=== PATIENT | male | born 1955 | race Caucasian/White ===

== ENCOUNTER 2016-11-19 12:23 | Inpatient (IN) | payer BC ==
[2016-11-19] MEDS ORDERED: Ketorolac 30 MG/ML SDV IVPUSH ONE (12:33)
[2016-11-19] MEDS ORDERED: Famotidine 20 MG/2 ML SDV IVPUSH ONE (12:33)
[2016-11-19] MEDS ORDERED: Alum Hydrox/Mag Hydrox/Simeth 15 ML, Metoclopramide 5 MG, Lidocaine 2% 5 ML PO ONE ×3 (12:33)
[2016-11-19] MEDS ORDERED: Aspirin 81 MG Tab.Chew PO ONE ×2 (12:33)
[2016-11-19] MEDS ORDERED: Sodium Chloride 0.9% 2.5 ML Syringe FLUSH PRN (12:33)
[2016-11-19] MEDS ORDERED: Sodium Chloride 0.9% 10 ML Syringe FLUSH PRN (12:33)
[2016-11-19 13:11] LABS: CHLORIDE,CL 96 mmol/L (98-110); SODIUM,NA 130 mmol/L (136-146)
[2016-11-19] MEDS ORDERED: cefTRIAXone 1 GM in Premix Bag 1 BAG IV ONE (13:29)
--- NOTE | 2016-11-19 13:38 | EDM.PDOC ---
ED HPI GENERAL MEDICAL PROBLEM - General Chief Complaint: Chest Pain Stated Complaint: CHEST PAIN Time Seen by Provider: 11/19/16 12:34 Source of Information: Reports: Patient History Limitations: Reports: No Limitations - History of Present Illness INITIAL COMMENTS - FREE TEXT/NARRATIVE: History of present illness: [61-year-old male coming in complaining of right-sided chest pain increases with a cough. Patient indicates that he has had been coughing and becoming more short of breath over the last 3 days and is now concerned about the need to be evaluated] Review of systems: As per history of present illness and below otherwise all systems reviewed and negative. Past medical history: As per history of present illness and as reviewed below otherwise noncontributory. Surgical history: As per history of present illness and as reviewed below otherwise noncontributory. Social history: No reported history of drug or alcohol abuse. Family history: As per history of present illness and as reviewed below otherwise noncontributory. Physical exam: HEENT: Atraumatic, normocephalic, pupils reactive, negative for conjunctival pallor or scleral icterus, mucous membranes moist, throat clear, neck supple, nontender, trachea midline. Lungs: Lungs clear but diminished throughout save some intermittent coarseness in the right apex that improves with a cough, chest nontender. Heart: S1S2, regular, negative for clicks, rubs, or JVD. Abdomen: Soft, nondistended, nontender. Negative for masses or hepatosplenomegaly. Negative for costovertebral tenderness. Pelvis: Stable nontender. Genitourinary: Deferred. Rectal: Deferred. Extremities: Atraumatic, negative for cords or calf pain. Neurovascular unremarkable. Neuro: Awake, alert, oriented. Cranial nerves II through XII unremarkable. Cerebellum unremarkable. Motor and sensory unremarkable throughout. Exam nonfocal. Patient has been a smoker history of bleed but has been attempting to quit indicates the breathing has made it more difficult to smoke as well so he is down to half a pack in the last 10 days approximately. Patient indicates that he becomes dyspneic on exertion and is finding it difficult to walk up stairs. Diagnostics: [CBC, CMP, troponin, chest x-ray, BNP, lactate, blood cultures] Therapeutics: [] Impression: [Pneumonia] Plan: [Admit] Definitive disposition and diagnosis as appropriate pending reevaluation and review of above. chest Pain Score (Numeric/FACES): 2 - Related Data Allergies Allergy/AdvReac Type Severity Reaction Status Date / Time No Known Allergies Allergy Verified 11/19/16 12:29 Home Meds: Home Meds . [No Known Home Meds] 11/19/16 [History] Past Medical History - Past Surgical History GI Surgical History: Reports: Hernia Repair/Other Musculoskeletal Surgical History: Reports: Other (See Below) Other Musculoskeletal Surgeries/Procedures:: knee surgery Social & Family History - Family History Family Medical History: Noncontributory - Tobacco Use Smoking Status *Q: Current Every Day Smoker Years of Tobacco use: 20 Packs/Tins Daily: 0.5 - Caffeine Use Caffeine Use: Reports: None - Alcohol Use Days Per Week of Alcohol Use: 2 Number of Drinks Per Day: 2 Total Drinks Per Week: 4 - Recreational Drug Use Recreational Drug Use: No ED ROS GENERAL - Review of Systems Review Of Systems: See Below (See history of present illness) ED EXAM, GENERAL - Physical Exam Exam: See Below (See history of present illness) Course - Vital Signs Last Recorded V/S: Last Vital Signs Temp 36.1 C 11/19/16 12:29 Pulse 124 H 11/19/16 12:29 Resp 20 11/19/16 12:29 BP 144/101 H 11/19/16 12:29 Pulse Ox 98 11/19/16 13:04 - Orders/Labs/Meds Orders: Active Orders 24 hr Category Date Time Status Cardiac Monitoring [RC] . DIRECTED Care 11/19/16 12:33 Ordered EKG Documentation Completion [RC] STAT Care 11/19/16 12:33 Active EKG Documentation Completion [RC] STAT Care 11/19/16 12:33 Ordered Oxygen Therapy, ED [RC] ASDIRECTED Care 11/19/16 12:33 Active Chest 1V Frontal [CR] Stat Exams 11/19/16 12:33 Ordered CULTURE BLOOD [BC] Stat Lab 11/19/16 13:29 Ordered CULTURE BLOOD [BC] Stat Lab 11/19/16 13:29 Ordered LACTIC ACID,WHOLE BLOOD [BG] Stat Lab 11/19/16 13:29 Ordered UA W/MICROSCOPIC [URIN] Stat Lab 11/19/16 12:33 Uncollected Sodium Chloride 0.9% [Saline Flush] Med 11/19/16 12:33 Ordered 10 ml FLUSH ASDIRECTED PRN Sodium Chloride 0.9% [Saline Flush] Med 11/19/16 12:33 Ordered 2.5 ml FLUSH ASDIRECTED PRN cefTRIAXone [Rocephin in Dextrose,Iso-Osm 1 GM/50 ML] 1 Med 11/19/16 13:29 Ordered gm Premix Bag 1 bag IV ONETIME Blood Culture x2 Reflex Set [OM.PC] Stat Oth 11/19/16 13:29 Ordered Saline Lock Insert [OM.PC] Stat Ot 11/19/16 12:33 Ordered Medication Orders Ceftriaxone Sodium/Dextrose 1 (gm/ Premix) 50 mls @ 100 mls/hr IV ONETIME ONE Stop: 11/19/16 13:58 Sodium Chloride (Saline Flush) 10 ml FLUSH ASDIRECTED PRN PRN Reason: Keep Vein Open Last Admin: 11/19/16 12:48 Dose: 10 ml Sodium Chloride (Saline Flush) 2.5 ml FLUSH ASDIRECTED PRN PRN Reason: Keep Vein Open Last Admin: 11/19/16 12:48 Dose: 2.5 ml Labs: Laboratory Tests 11/19/16 11/19/16 11/19/16 Range/Units 12:35 12:35 12:35 WBC 12.39 H (4.0-11.0) K/uL RBC 3.89 L (4.50-5.90) M/uL Hgb 12.1 L (13.0-17.0) g/dL Hct 35.8 L (38.0-50.0) % MCV 92.0 (80.0-98.0) fL MCH 31.1 (27.0-32.0) pg MCHC 33.8 (31.0-37.0) g/dL RDW Std Deviation 42.3 (28.0-62.0) fl RDW Coeff of Parvez 13 (11.0-15.0) % Plt Count 308 (150-400) K/uL MPV 10.40 (7.40-12.00) fL Neut % (Auto) 78.0 (48.0-80.0) % Lymph % (Auto) 12.2 L (16.0-40.0) % Cobb % (Auto) 9.5 (0.0-15.0) % Eos % (Auto) 0.0 (0.0-7.0) % Baso % (Auto) 0.3 (0.0-1.5) % Neut # (Auto) 9.7 H (1.4-5.7) K/uL Lymph # (Auto) 1.5 (0.6-2.4) K/uL Cobb # (Auto) 1.2 H (0.0-0.8) K/uL Eos # (Auto) 0.0 (0.0-0.7) K/uL Baso # (Auto) 0.0 (0.0-0.1) K/uL Nucleated RBC % 0.0 /100WBC Nucleated RBCs # 0 K/uL Sodium 130 L (136-146) mmol/L Potassium 4.6 (3.5-5.1) mmol/L Chloride 96 L (98-110) mmol/L Carbon Dioxide 20 L (21-31) mmol/L BUN 19 (6.0-23.0) mg/dL Creatinine 0.9 (0.6-1.5) mg/dL Est Cr Clr Drug Dosing 88.38 mL/min Estimated GFR (MDRD) > 60.0 ml/min Glucose 145 H (60-110) mg/dL Calcium 8.4 L (8.8-10.8) mg/dL Total Bilirubin 0.9 (0.1-1.5) mg/dL AST 45 H (5-40) IU/L ALT 43 (8-54) IU/L Alkaline Phosphatase 174 H (40-150) Troponin I < 0.10 (0.0-0.29) NG/ML Total Protein 8.2 H (6.0-8.0) g/dL Albumin 3.6 (3.5-5.0) g/dL Globulin 4.6 H (2.0-3.5) g/dL Albumin/Globulin Ratio 0.8 L (1.3-2.8) Amylase 39 (10-90) U/L Lipase 16 (7-80) U/L Meds: Medications Generic Name Dose Route Start Last Admin Trade Name Freq PRN Reason Stop Dose Admin Ceftriaxone Sodium/Dextrose 1 50 mls @ 100 mls/hr 11/19/16 13:29 gm/ Premix IV 11/19/16 13:58 ONETIME ONE Sodium Chloride 10 ml 11/19/16 12:33 11/19/16 12:48 Saline Flush FLUSH 10 ml ASDIRECTED PRN Administration Keep Vein Open Sodium Chloride 2.5 ml 11/19/16 12:33 11/19/16 12:48 Saline Flush FLUSH 2.5 ml ASDIRECTED PRN Administration Keep Vein Open Discontinued Medications Generic Name Dose Route Start Last Admin Trade Name Freq PRN Reason Stop Dose Admin Aspirin 324 mg 11/19/16 12:33 11/19/16 12:47 Aspirin PO 11/19/16 12:34 324 mg ONETIME ONE Administration Aspirin 324 mg 11/19/16 12:33 11/19/16 12:49 Aspirin PO 11/19/16 12:34 Not Given ONETIME ONE Al Hydroxide/Mg Hydroxide 15 0 ml 11/19/16 12:33 11/19/16 12:47 ml/ Metoclopramide HCl 5 mg/ PO 11/19/16 12:34 25 each Lidocaine HCl 5 ml ONETIME ONE Administration Famotidine 20 mg 11/19/16 12:33 11/19/16 12:48 Pepcid IVPUSH 11/19/16 12:34 20 mg ONETIME ONE Administration Ketorolac Tromethamine 30 mg 11/19/16 12:33 11/19/16 12:48 Toradol IVPUSH 11/19/16 12:34 30 mg ONETIME ONE Administration Departure - Departure Time of Disposition: 13:37 Disposition: Admitted As Inpatient 68 Condition: good Clinical Impression: Pneumonia - Discharge Information Forms: ED Department Discharge - My Orders Last 24 Hours: My Active Orders 11/19/16 12:33 Cardiac Monitoring [RC] . DIRECTED EKG Documentation Completion [RC] STAT UA W/MICROSCOPIC [URIN] Stat Sodium Chloride 0.9% [Saline Flush] 10 ml FLUSH ASDIRECTED PRN Sodium Chloride 0.9% [Saline Flush] 2.5 ml FLUSH ASDIRECTED PRN Saline Lock Insert [OM.PC] Stat 11/19/16 13:29 CULTURE BLOOD [BC] Stat CULTURE BLOOD [BC] Stat LACTIC ACID,WHOLE BLOOD [BG] Stat cefTRIAXone [Rocephin in Dextrose,Iso-Osm 1 GM/50 ML] 1 gm Premix Bag 1 bag IV ONETIME Blood Culture x2 Reflex Set [OM.PC] Stat - Assessment/Plan Last 24 Hours: My Active Orders 11/19/16 12:33 Cardiac Monitoring [RC] . DIRECTED EKG Documentation Completion [RC] STAT UA W/MICROSCOPIC [URIN] Stat Sodium Chloride 0.9% [Saline Flush] 10 ml FLUSH ASDIRECTED PRN Sodium Chloride 0.9% [Saline Flush] 2.5 ml FLUSH ASDIRECTED PRN Saline Lock Insert [OM.PC] Stat 11/19/16 13:29 CULTURE BLOOD [BC] Stat CULTURE BLOOD [BC] Stat LACTIC ACID,WHOLE BLOOD [BG] Stat cefTRIAXone [Rocephin in Dextrose,Iso-Osm 1 GM/50 ML] 1 gm Premix Bag 1 bag IV ONETIME Blood Culture x2 Reflex Set [OM.PC] Stat
[2016-11-19] MEDS ORDERED: oxyCODONE 5 MG Tab PO PRN (15:44)
[2016-11-19] MEDS ORDERED: Morphine 2 MG/ML Syringe IVPUSH PRN (15:45)
--- NOTE | 2016-11-19 16:59 | PCM.HP ---
H&P History of Present Illness - General Date of Service: 11/19/16 Admit Problem/Dx: pneumonia, lactic acidosis, leukocytosis Source of Information: Patient History Limitations: Reports: No Limitations - History of Present Illness Initial Comments - Free Text/Narative: Patient is a 61-year-old gentleman who is presented to the emergency department via POV secondary to cough, congestion and chest pain for the past week. The patient reports that he has had some chills but no fever. Patient says that he had symptoms of started out as a cough and congestion in his upper respiratory tract and this is gotten worse to the point that now he is coughing up moderate amounts of phlegm. Patient says that a coworker in the next cubicle had been sick as well with similar symptoms. The patient says that he has pain has been across his chest and has been aggravated by coughing. The patient has been trying to take [id number] medication but this does not work for him. The patient has denied any dizziness or lightheadedness. Patient does not normally seek medical care and has been in his usual state of health up at the present time. Patient reports that for the past couple of months he has cut back considerably on the amount of tobacco consumed. He is down to 2-3 cigarettes per day. The patient does not take any other medications chronically. An x-ray obtained through the emergency department shows a hilar infiltrate along with cardiomegaly. On initial presentation the patient also had been tachycardic. He has said that he has been very short of breath to the point of feeling like he has been running a distance. The patient's oxygen saturation was noted to be at 98%. Onset of Symptoms: Reports: Gradual Duration of Symptoms: Reports: Day(s):, Getting Worse Location: Reports: Chest Quality: Reports: Ache, Dull Improves with: Reports: Medication Worsens with: Reports: Breathing Context: Reports: Sick Contact Associated Symptoms: Reports: Chest Pain, cough w sputum, Fever/Chills, Malaise , Shortness of Breath chest Pain Score (Numeric/FACES): 2 - Related Data Allergies/Adverse Reactions: Allergies Allergy/AdvReac Type Severity Reaction Status Date / Time No Known Allergies Allergy Verified 11/19/16 12:29 Home Medications: Home Meds . [No Known Home Meds] 11/19/16 [History] Past Medical History HEENT History: Reports: Impaired Vision Cardiovascular History: Reports: None Respiratory History: Reports: None Gastrointestinal History: Reports: None Genitourinary History: Reports: None Musculoskeletal History: Reports: None Neurological History: Reports: None Psychiatric History: Reports: None Endocrine/Metabolic History: Reports: None Hematologic History: Reports: Anemia (childhood anemia) Immunologic History: Reports: None Oncologic (Cancer) History: Reports: None Dermatologic History: Reports: None - Infectious Disease History Infectious Disease History: Reports: None - Past Surgical History GI Surgical History: Reports: Hernia Repair/Other Musculoskeletal Surgical History: Reports: Other (See Below) Other Musculoskeletal Surgeries/Procedures:: knee surgery Social & Family History - Family History Family Medical History: Noncontributory - Tobacco Use Smoking Status *Q: Current Every Day Smoker Years of Tobacco use: 20 Packs/Tins Daily: 0.2 Second Hand Smoke Exposure: No - Caffeine Use Caffeine Use: Reports: None - Alcohol Use Days Per Week of Alcohol Use: 2 Number of Drinks Per Day: 2 Total Drinks Per Week: 4 - Recreational Drug Use Recreational Drug Use: No - Living Situation & Occupation Living situation: Reports: Occupation: Employed H&P Review of Systems - Review of Systems: Review Of Systems: See Below General: Reports: Chills, Weakness HEENT: Reports: No Symptoms Pulmonary: Reports: Shortness of Breath, Pleuritic Chest Pain, Cough, Sputum Cardiovascular: Reports: No Symptoms Gastrointestinal: Reports: No Symptoms Genitourinary: Reports: No Symptoms Musculoskeletal: Reports: No Symptoms Skin: Reports: No Symptoms Psychiatric: Reports: No Symptoms Neurological: Reports: No Symptoms Hematologic/Lymphatic: Reports: No Symptoms Immunologic: Reports: No Symptoms Exam - Exam Exam: See Below - Vital Signs Vital Signs: Last Vital Signs Temp 36.4 C 11/19/16 16:00 Pulse 100 11/19/16 16:00 Resp 16 11/19/16 16:00 BP 100/72 11/19/16 16:00 Pulse Ox 94 L 11/19/16 16:00 Weight: 67.1 kg - Exam Quality Assessment: No: Supplemental Oxygen General: Alert, Oriented, Cooperative. No: Mild Distress HEENT: Conjunctiva Clear, EACs Clear, Mucosa Moist & [place], Nares Patent Neck: Supple, Trachea Midline. No: Lymphadenopathy Lungs: Normal Respiratory Effort, Rales (bibasilar) Cardiovascular: Regular Rate, Regular Rhythm Abdomen: Normal Bowel Sounds, Soft. No: Peritoneal Signs, Distention, Tenderness Back Exam: Normal Inspection Extremities: Normal Inspection Skin: Warm, Dry, Intact Neurological: Cranial Nerves Intact Neuro Extensive - Mental Status: Alert, Oriented x3 Psychiatric: Alert, Normal Affect, Normal Mood - Patient Data Lab Results last 24 hrs: Laboratory Results - last 24 hr 11/19/16 Range/Units 13:50 Lactate 2.4 H (0.20-2.00) mmol/L Result Diagrams: 11/19/16 12:35 11/19/16 12:35 EKG INTERPRETATION EKG Date: 11/19/16 Rhythm: NSR [place]: normal P-wave: present QRS: normal ST-T: normal QT: normal EKG Interpretation Comments: normal EKG *Q Meaningful Use (ADM) - VTE *Q VTE Criteria *Q: - VTE Risk Assess *Q Each Risk Factor Represents 1 Point: Age 41 - 59 years Total Score 1 Point Risk Factors: 1 - Stroke *Q Stroke Criteria *Q: - AMI *Q AMI Criteria *Q: - Problem List (1) Pneumonia SNOMED Code(s): 533423060 ICD Code: J18.9 - PNEUMONIA, UNSPECIFIED ORGANISM Status: Acute Priority : High Current Visit: Yes Qualifiers: Pneumonia type: due to unspecified organism Laterality: left Lung location: lower lobe of lung Qualified Code(s): J18.1 - Lobar pneumonia, unspecified organism (2) Lactic acid acidosis SNOMED Code(s): 74721641 ICD Code: E87.2 - ACIDOSIS Status: Acute Priority: High Current Visit: Yes (3) Leukocytosis SNOMED Code(s): 575442543, 539483892 ICD Code: D72.829 - ELEVATED WHITE BLOOD CELL COUNT, UNSPECIFIED Status: Acute Priority: High Current Visit: Yes Qualifiers: Leukocytosis type: unspecified Qualified Code(s): D72.829 - Elevated white blood cell count, unspecified (4) Smoker SNOMED Code(s): 72161492 ICD Code: F17.200 - NICOTINE DEPENDENCE, UNSPECIFIED, UNCOMPLICATED Status : Chronic Priority: High Current Visit: Yes (5) Acute chest wall pain SNOMED Code(s): 099237038 ICD Code: R07.89 - OTHER CHEST PAIN Status: Acute Priority: High Current Visit: Yes Problem List Initiated/Reviewed/Updated: Yes Orders Last 24hrs: Active Orders 24 hr Category Date Time Status Regular Diet [DIET] Diet 11/19/16 Dinner Active Echo 2D wo Cont [US] Routine Exams 11/19/16 16:30 Ordered BASIC METABOLIC PANEL,BMP [CHEM] Routine Lab 11/20/16 05:00 Ordered CBC WITH AUTO DIFF [HEME] Routine Lab 11/20/16 05:00 Ordered CULTURE SPUTUM + SMEAR [RM] Routine Lab 11/19/16 16:30 Uncollected LACTIC ACID,WHOLE BLOOD [BG] Routine Lab 11/19/16 18:30 Ordered Morphine Med 11/19/16 15:45 Active 2 mg IVPUSH Q4H PRN Nicotine [Habitrol] Med 11/20/16 09:00 Active 7 mg TRDERM DAILY Sodium Chloride 0.9% [Normal Saline] 1,000 ml Med 11/19/16 15:45 Active IV ASDIRECTED oxyCODONE Med 11/19/16 15:44 Active 5 mg PO Q4H PRN Medication Orders Sodium Chloride (Normal Saline) 1,000 mls @ 125 mls/hr IV ASDIRECTED ARNAUD Morphine Sulfate (Morphine) 2 mg IVPUSH Q4H PRN PRN Reason: Pain (severe 7-10) Nicotine (Habitrol) 7 mg TRDERM DAILY ARNAUD Oxycodone HCl (Oxycodone) 5 mg PO Q4H PRN PRN Reason: Pain (moderate 4-6) Sodium Chloride (Saline Flush) 10 ml FLUSH ASDIRECTED PRN PRN Reason: Keep Vein Open Last Admin: 11/19/16 12:48 Dose: 10 ml Sodium Chloride (Saline Flush) 2.5 ml FLUSH ASDIRECTED PRN PRN Reason: Keep Vein Open Last Admin: 11/19/16 12:48 Dose: 2.5 ml Assessment/Plan Comment:: November 19, 2016: The patient has been admitted to inpatient secondary to his leukocytosis, lactic acidosis and pneumonia. He's been admitted for IV antibiotics, fluid support and oxygen as necessary. The patient had been given 1 g of Rocephin in the emergency department prior to admission and I have elected to place the patient on Levaquin 500 mg IV daily and have ordered sputum cultures to speciate bacteria and his antibiotics will be adjusted accordingly. The patient also has been provided narcotic pain medication to help reduce chest pain. He also has a 7 mg nicotine patch to help with his smoking. I have encouraged the patient to stop smoking and take advantage of the hospitalization. I am concerned that the patient does have cardiomegaly on chest x-ray and have ordered also a 2-D echocardiogram to better characterize this. Repeat lactic acid will also be completed. The patient would likely be ready to go home in one to 2 days depending upon resolution of his leukocytosis , pain well-controlled and antibiotics appropriate for his pneumonia. The patient will also be anticoagulated by Lovenox 40 mg daily. I'll see the patient in the morning and his treatment plan will be adjusted accordingly.
[2016-11-19] MEDS ORDERED: Enoxaparin 40 MG/0.4 ML Syringe SUBCUT SCH (17:00)
[2016-11-20] MEDS ORDERED: Benzonatate 100 MG Cap PO PRN (00:56)
[2016-11-20] MEDS: Sodium Chloride 0.9% 1,000 ML IV SCH ×2 (01:09→09:00)
[2016-11-20 05:27] LABS: CHLORIDE,CL 99 mmol/L (98-110); SODIUM,NA 129 mmol/L (136-146)
[2016-11-20] MEDS ORDERED: Nicotine 7 MG/24 Hr Patch TRDERM SCH (09:00)
--- NOTE | 2016-11-20 09:12 | PCM.DCSUM1 ---
<Balrichard,Shmuel - Last Filed: 11/20/16 09:03> Discharge Summary - Hospital Course Free Text/Narrative:: 61 yo male smoker admitted on 11/19 for Pneumonia and Sepsis. He has no significant pmh. He apparently was not on any medications at admission. He was treated with Ceftriaxone. Echo was done morning of 09/20/16 that was reviewed by veterinary pathologist who noted Cardiac Tamponade. Hospitalist with Dr. Hahn from Cardiology in [place] who accepted the patient. The patient will be transported via air. He will be admitted directly into the ICU. He will be on IV NS @ 250 ml /hour. Transferring physician is Dr. Lockhart. Receiving Physician is Dr. Hahn. - Discharge Data Discharge Date: 11/20/16 Discharge Disposition: DC/Tfer to Acute Hospital 02 Condition: Serious - Patient Summary/Data Consults: Consultations 11/20/16 08:23 Consult to Physician [CONS] Routine - Discharge Plan Home Medications: Home Meds . [No Known Home Meds] 11/19/16 [History] Forms: ED Department Discharge Referrals: PCP,None [Primary Care Provider] - - Discharge Summary/Plan Comment DC Time >30 min.: No Discharge Summary/Plan Comment: Transferred to [facility]. Directly to ICU. Transferring physician Dr. Lockhart. Receiving Physician Dr. Hahn. Transfer initiated at 0900 . Patient will be on IV NS @ 250ml/hr - Patient Data Vitals - Most Recent: Last Vital Signs Temp 36.6 C 11/20/16 08:00 Pulse 99 11/20/16 08:00 Resp 20 11/20/16 08:00 BP 107/87 11/20/16 08:00 Pulse Ox 93 L 11/20/16 08:00 Weight - Most Recent: 67.1 kg I&O - Last 24 hours: Intake & Output 11/19/16 11/20/16 11/20/16 22:59 06:59 14:59 Intake Total 240 1802 950 Output Total 300 Balance 240 1502 950 Lab Results - Last 24 hrs: Laboratory Results - last 24 hr 11/19/16 11/19/16 11/20/16 Range/Units 13:50 18:37 00:05 WBC (4.0-11.0) K/uL RBC (4.50-5.90) M/uL Hgb (13.0-17.0) g/dL Hct (38.0-50.0) % MCV (80.0-98.0) fL MCH (27.0-32.0) pg MCHC (31.0-37.0) g/dL RDW Std Deviation (28.0-62.0) fl RDW Coeff of Parvez (11.0-15.0) % Plt Count (150-400) K/uL MPV (7.40-12.00) fL Neut % (Auto) (48.0-80.0) % Lymph % (Auto) (16.0-40.0) % [place] % (Auto) (0.0-15.0) % Eos % (Auto) (0.0-7.0) % Baso % (Auto) (0.0-1.5) % Neut # (Auto) (1.4-5.7) K/uL Lymph # (Auto) (0.6-2.4) K/uL [place] # (Auto) (0.0-0.8) K/uL Eos # (Auto) (0.0-0.7) K/uL Baso # (Auto) (0.0-0.1) K/uL Nucleated RBC % /100WBC Nucleated RBCs # K/uL Lactate 2.4 H 2.3 H (0.20-2.00) mmol/L Sodium (136-146) mmol/L Potassium (3.5-5.1) mmol/L Chloride (98-110) mmol/L Carbon Dioxide (21-31) mmol/L BUN (6.0-23.0) mg/dL Creatinine (0.6-1.5) mg/dL Est Cr Clr Drug Dosing mL/min Estimated GFR (MDRD) ml/min Glucose (60-110) mg/dL Calcium (8.8-10.8) mg/dL Urine Color DARK YELLOW Urine Appearance CLEAR Urine pH 5.0 (5.0-8.0) Ur Specific [place] >= 1.030 (1.001-1.035) Urine Protein 30 (NEGATIVE) mg/dL Urine Glucose (UA) NEGATIVE (NEGATIVE) mg/dL Urine Ketones NEGATIVE (NEGATIVE) mg/dL Urine Occult Blood TRACE-INTACT (NEGATIVE) Urine Nitrite NEGATIVE (NEGATIVE) Urine Bilirubin MODERATE H (NEGATIVE) Urine Urobilinogen 4.0 H (<2.0) EU/dL Ur Leukocyte Esterase NEGATIVE (NEGATIVE) Urine RBC 0-2 (0-2/HPF) Urine WBC 2-3 (0-5/HPF) Ur Epithelial Cells RARE (NONE-FEW) Urine Bacteria 1+ H (NEGATIVE) Hyaline Casts 8-12 (0-2/LPF) Urine Mucus MODERATE (NONE-MOD) 11/20/16 11/20/16 11/20/16 Range/Units 00:14 04:38 04:38 WBC 9.78 (4.0-11.0) K/uL RBC 3.55 L (4.50-5.90) M/uL Hgb 10.9 L (13.0-17.0) g/dL Hct 32.2 L (38.0-50.0) % MCV 90.7 (80.0-98.0) fL MCH 30.7 (27.0-32.0) pg MCHC 33.9 (31.0-37.0) g/dL RDW Std Deviation 41.4 (28.0-62.0) fl RDW Coeff of Parvez 12 (11.0-15.0) % Plt Count 275 (150-400) K/uL MPV 10.60 (7.40-12.00) fL Neut % (Auto) 78.3 (48.0-80.0) % Lymph % (Auto) 9.7 L (16.0-40.0) % [place] % (Auto) 11.6 (0.0-15.0) % Eos % (Auto) 0.1 (0.0-7.0) % Baso % (Auto) 0.3 (0.0-1.5) % Neut # (Auto) 7.7 H (1.4-5.7) K/uL Lymph # (Auto) 1.0 (0.6-2.4) K/uL [place] # (Auto) 1.1 H (0.0-0.8) K/uL Eos # (Auto) 0.0 (0.0-0.7) K/uL Baso # (Auto) 0.0 (0.0-0.1) K/uL Nucleated RBC % 0.0 /100WBC Nucleated RBCs # 0 K/uL Lactate 2.5 H (0.20-2.00) mmol/L Sodium 129 L (136-146) mmol/L Potassium 5.0 (3.5-5.1) mmol/L Chloride 99 (98-110) mmol/L Carbon Dioxide 18 L (21-31) mmol/L BUN 26 H (6.0-23.0) mg/dL Creatinine 0.8 (0.6-1.5) mg/dL Est Cr Clr Drug Dosing 94.36 mL/min Estimated GFR (MDRD) > 60.0 ml/min Glucose 116 H (60-110) mg/dL Calcium 7.7 L (8.8-10.8) mg/dL Urine Color Urine Appearance Urine pH (5.0-8.0) Ur Specific [place] (1.001-1.035) Urine Protein (NEGATIVE) mg/dL Urine Glucose (UA) (NEGATIVE) mg/dL Urine Ketones (NEGATIVE) mg/dL Urine Occult Blood (NEGATIVE) Urine Nitrite (NEGATIVE) Urine Bilirubin (NEGATIVE) Urine Urobilinogen (<2.0) EU/dL Ur Leukocyte Esterase (NEGATIVE) Urine RBC (0-2/HPF) Urine WBC (0-5/HPF) Ur Epithelial Cells (NONE-FEW) Urine Bacteria (NEGATIVE) Hyaline Casts (0-2/LPF) Urine Mucus (NONE-MOD) 11/20/16 Range/Units 06:04 WBC (4.0-11.0) K/uL RBC (4.50-5.90) M/uL Hgb (13.0-17.0) g/dL Hct (38.0-50.0) % MCV (80.0-98.0) fL MCH (27.0-32.0) pg MCHC (31.0-37.0) g/dL RDW Std Deviation (28.0-62.0) fl RDW Coeff of Parvez (11.0-15.0) % Plt Count (150-400) K/uL MPV (7.40-12.00) fL Neut % (Auto) (48.0-80.0) % Lymph % (Auto) (16.0-40.0) % [place] % (Auto) (0.0-15.0) % Eos % (Auto) (0.0-7.0) % Baso % (Auto) (0.0-1.5) % Neut # (Auto) (1.4-5.7) K/uL Lymph # (Auto) (0.6-2.4) K/uL [place] # (Auto) (0.0-0.8) K/uL Eos # (Auto) (0.0-0.7) K/uL Baso # (Auto) (0.0-0.1) K/uL Nucleated RBC % /100WBC Nucleated RBCs # K/uL Lactate 2.2 H (0.20-2.00) mmol/L Sodium (136-146) mmol/L Potassium (3.5-5.1) mmol/L Chloride (98-110) mmol/L Carbon Dioxide (21-31) mmol/L BUN (6.0-23.0) mg/dL Creatinine (0.6-1.5) mg/dL Est Cr Clr Drug Dosing mL/min Estimated GFR (MDRD) ml/min Glucose (60-110) mg/dL Calcium (8.8-10.8) mg/dL Urine Color Urine Appearance Urine pH (5.0-8.0) Ur Specific [place] (1.001-1.035) Urine Protein (NEGATIVE) mg/dL Urine Glucose (UA) (NEGATIVE) mg/dL Urine Ketones (NEGATIVE) mg/dL Urine Occult Blood (NEGATIVE) Urine Nitrite (NEGATIVE) Urine Bilirubin (NEGATIVE) Urine Urobilinogen (<2.0) EU/dL Ur Leukocyte Esterase (NEGATIVE) Urine RBC (0-2/HPF) Urine WBC (0-5/HPF) Ur Epithelial Cells (NONE-FEW) Urine Bacteria (NEGATIVE) Hyaline Casts (0-2/LPF) Urine Mucus (NONE-MOD) SANTY Results - Last 24 hrs: Microbiology 11/20/16 01:10 Gram Stain - Preliminary Sputum - Expectorated Med Orders - Current: Current Medications Benzonatate (Tessalon Perles) 100 mg PO Q6H PRN PRN Reason: Cough Last Admin: 11/20/16 01:10 Dose: 100 mg Enoxaparin Sodium (Lovenox) 40 mg SUBCUT Q24H [facility] Last Admin: 11/19/16 17:44 Dose: 40 mg Sodium Chloride (Normal Saline) 1,000 mls @ 50 mls/hr IV ASDIRECTED [facility] Last Admin: 11/20/16 09:00 Dose: 50 mls/hr Morphine Sulfate (Morphine) 2 mg IVPUSH Q4H PRN PRN Reason: Pain (severe 7-10) Nicotine (Habitrol) 7 mg TRDERM DAILY [facility] Oxycodone HCl (Oxycodone) 5 mg PO Q4H PRN PRN Reason: Pain (moderate 4-6) Last Admin: 11/19/16 23:49 Dose: 5 mg Sodium Chloride (Saline Flush) 10 ml FLUSH ASDIRECTED PRN PRN Reason: Keep Vein Open Last Admin: 11/19/16 12:48 Dose: 10 ml Sodium Chloride (Saline Flush) 2.5 ml FLUSH ASDIRECTED PRN PRN Reason: Keep Vein Open Last Admin: 11/19/16 12:48 Dose: 2.5 ml Discontinued Medications Aspirin (Aspirin) 324 mg PO ONETIME ONE Stop: 11/19/16 12:34 Last Admin: 11/19/16 12:47 Dose: 324 mg Aspirin (Aspirin) 324 mg PO ONETIME ONE Stop: 11/19/16 12:34 Last Admin: 11/19/16 12:49 Dose: Not Given Al Hydroxide/Mg Hydroxide 15 ml/ Metoclopramide HCl 5 mg/Lidocaine HCl 5 ml 0 ml PO ONETIME ONE Stop: 11/19/16 12:34 Last Admin: 11/19/16 12:47 Dose: 25 each Famotidine (Pepcid) 20 mg IVPUSH ONETIME ONE Stop: 11/19/16 12:34 Last Admin: 11/19/16 12:48 Dose: 20 mg Ceftriaxone Sodium/Dextrose 1 (gm/ Premix) 50 mls @ 100 mls/hr IV ONETIME ONE Stop: 11/19/16 13:58 Last Admin: 11/19/16 13:43 Dose: 100 mls/hr Ketorolac Tromethamine (Toradol) 30 mg IVPUSH ONETIME ONE Stop: 11/19/16 12:34 Last Admin: 11/19/16 12:48 Dose: 30 mg *Q Meaningful Use (DIS) - VTE *Q VTE Criteria *Q: - Stroke *Q Stroke Criteria *Q: - AMI *Q AMI Criteria *Q: <Nilton Lockhart - Last Filed: 11/20/16 09:55> Discharge Summary - Hospital Course Free Text/Narrative:: I was present with the resident during the history and physical examination I discussed with the resident and agree with the findings and the plan as documented in the resident's note. I have discussed the case with cardiology. The patient is exhibiting cardiac tamponade. I've spoken directly with Dr. Hahn in [facility] [place] who accepts the patient and the patient will be transferred directly to intensive care at a tertiary care center. Patient will be evacuated by aircraft. - Discharge Diagnosis/Problem(s) (1) Pneumonia SNOMED Code(s): 326070659 ICD Code: J18.9 - PNEUMONIA, UNSPECIFIED ORGANISM Status: Acute Priority : High Current Visit: Yes Qualifiers: Pneumonia type: due to unspecified organism Laterality: left Lung location: lower lobe of lung Qualified Code(s): J18.1 - Lobar pneumonia, unspecified organism (2) Lactic acid acidosis SNOMED Code(s): 14920297 ICD Code: E87.2 - ACIDOSIS Status: Acute Priority: High Current Visit: Yes (3) Leukocytosis SNOMED Code(s): 230233160, 726401216 ICD Code: D72.829 - ELEVATED WHITE BLOOD CELL COUNT, UNSPECIFIED Status: Acute Priority: High Current Visit: Yes Qualifiers: Leukocytosis type: unspecified Qualified Code(s): D72.829 - Elevated white blood cell count, unspecified (4) Smoker SNOMED Code(s): 34256864 ICD Code: F17.200 - NICOTINE DEPENDENCE, UNSPECIFIED, UNCOMPLICATED Status : Chronic Priority: High Current Visit: Yes (5) Acute chest wall pain SNOMED Code(s): 732535732 ICD Code: R07.89 - OTHER CHEST PAIN Status: Acute Priority: High Current Visit: Yes - Patient Summary/Data Consults: Consultations 11/20/16 08:23 Consult to Physician [CONS] Routine - Patient Data Vitals - Most Recent: Last Vital Signs Temp 36.6 C 11/20/16 09:00 Pulse 119 H 11/20/16 09:00 Resp 20 11/20/16 09:00 BP 101/80 11/20/16 09:00 Pulse Ox 93 L 11/20/16 09:00 I&O - Last 24 hours: Intake & Output 11/19/16 11/20/16 11/20/16 22:59 06:59 14:59 Intake Total 240 1802 950 Output Total 300 Balance 240 1502 950 Lab Results - Last 24 hrs: Laboratory Results - last 24 hr 11/19/16 11/19/16 11/20/16 Range/Units 13:50 18:37 00:05 WBC (4.0-11.0) K/uL RBC (4.50-5.90) M/uL Hgb (13.0-17.0) g/dL Hct (38.0-50.0) % MCV (80.0-98.0) fL MCH (27.0-32.0) pg MCHC (31.0-37.0) g/dL RDW Std Deviation (28.0-62.0) fl RDW Coeff of Parvez (11.0-15.0) % Plt Count (150-400) K/uL MPV (7.40-12.00) fL Neut % (Auto) (48.0-80.0) % Lymph % (Auto) (16.0-40.0) % [place] % (Auto) (0.0-15.0) % Eos % (Auto) (0.0-7.0) % Baso % (Auto) (0.0-1.5) % Neut # (Auto) (1.4-5.7) K/uL Lymph # (Auto) (0.6-2.4) K/uL [place] # (Auto) (0.0-0.8) K/uL Eos # (Auto) (0.0-0.7) K/uL Baso # (Auto) (0.0-0.1) K/uL Nucleated RBC % /100WBC Nucleated RBCs # K/uL Lactate 2.4 H 2.3 H (0.20-2.00) mmol/L Sodium (136-146) mmol/L Potassium (3.5-5.1) mmol/L Chloride (98-110) mmol/L Carbon Dioxide (21-31) mmol/L BUN (6.0-23.0) mg/dL Creatinine (0.6-1.5) mg/dL Est Cr Clr Drug Dosing mL/min Estimated GFR (MDRD) ml/min Glucose (60-110) mg/dL Calcium (8.8-10.8) mg/dL Urine Color DARK YELLOW Urine Appearance CLEAR Urine pH 5.0 (5.0-8.0) Ur Specific [place] >= 1.030 (1.001-1.035) Urine Protein 30 (NEGATIVE) mg/dL Urine Glucose (UA) NEGATIVE (NEGATIVE) mg/dL Urine Ketones NEGATIVE (NEGATIVE) mg/dL Urine Occult Blood TRACE-INTACT (NEGATIVE) Urine Nitrite NEGATIVE (NEGATIVE) Urine Bilirubin MODERATE H (NEGATIVE) Urine Urobilinogen 4.0 H (<2.0) EU/dL Ur Leukocyte Esterase NEGATIVE (NEGATIVE) Urine RBC 0-2 (0-2/HPF) Urine WBC 2-3 (0-5/HPF) Ur Epithelial Cells RARE (NONE-FEW) Urine Bacteria 1+ H (NEGATIVE) Hyaline Casts 8-12 (0-2/LPF) Urine Mucus MODERATE (NONE-MOD) 11/20/16 11/20/16 11/20/16 Range/Units 00:14 04:38 04:38 WBC 9.78 (4.0-11.0) K/uL RBC 3.55 L (4.50-5.90) M/uL Hgb 10.9 L (13.0-17.0) g/dL Hct 32.2 L (38.0-50.0) % MCV 90.7 (80.0-98.0) fL MCH 30.7 (27.0-32.0) pg MCHC 33.9 (31.0-37.0) g/dL RDW Std Deviation 41.4 (28.0-62.0) fl RDW Coeff of Parvez 12 (11.0-15.0) % Plt Count 275 (150-400) K/uL MPV 10.60 (7.40-12.00) fL Neut % (Auto) 78.3 (48.0-80.0) % Lymph % (Auto) 9.7 L (16.0-40.0) % [place] % (Auto) 11.6 (0.0-15.0) % Eos % (Auto) 0.1 (0.0-7.0) % Baso % (Auto) 0.3 (0.0-1.5) % Neut # (Auto) 7.7 H (1.4-5.7) K/uL Lymph # (Auto) 1.0 (0.6-2.4) K/uL [place] # (Auto) 1.1 H (0.0-0.8) K/uL Eos # (Auto) 0.0 (0.0-0.7) K/uL Baso # (Auto) 0.0 (0.0-0.1) K/uL Nucleated RBC % 0.0 /100WBC Nucleated RBCs # 0 K/uL Lactate 2.5 H (0.20-2.00) mmol/L Sodium 129 L (136-146) mmol/L Potassium 5.0 (3.5-5.1) mmol/L Chloride 99 (98-110) mmol/L Carbon Dioxide 18 L (21-31) mmol/L BUN 26 H (6.0-23.0) mg/dL Creatinine 0.8 (0.6-1.5) mg/dL Est Cr Clr Drug Dosing 94.36 mL/min Estimated GFR (MDRD) > 60.0 ml/min Glucose 116 H (60-110) mg/dL Calcium 7.7 L (8.8-10.8) mg/dL Urine Color Urine Appearance Urine pH (5.0-8.0) Ur Specific [place] (1.001-1.035) Urine Protein (NEGATIVE) mg/dL Urine Glucose (UA) (NEGATIVE) mg/dL Urine Ketones (NEGATIVE) mg/dL Urine Occult Blood (NEGATIVE) Urine Nitrite (NEGATIVE) Urine Bilirubin (NEGATIVE) Urine Urobilinogen (<2.0) EU/dL Ur Leukocyte Esterase (NEGATIVE) Urine RBC (0-2/HPF) Urine WBC (0-5/HPF) Ur Epithelial Cells (NONE-FEW) Urine Bacteria (NEGATIVE) Hyaline Casts (0-2/LPF) Urine Mucus (NONE-MOD) 11/20/16 Range/Units 06:04 WBC (4.0-11.0) K/uL RBC (4.50-5.90) M/uL Hgb (13.0-17.0) g/dL Hct (38.0-50.0) % MCV (80.0-98.0) fL MCH (27.0-32.0) pg MCHC (31.0-37.0) g/dL RDW Std Deviation (28.0-62.0) fl RDW Coeff of Parvez (11.0-15.0) % Plt Count (150-400) K/uL MPV (7.40-12.00) fL Neut % (Auto) (48.0-80.0) % Lymph % (Auto) (16.0-40.0) % [place] % (Auto) (0.0-15.0) % Eos % (Auto) (0.0-7.0) % Baso % (Auto) (0.0-1.5) % Neut # (Auto) (1.4-5.7) K/uL Lymph # (Auto) (0.6-2.4) K/uL [place] # (Auto) (0.0-0.8) K/uL Eos # (Auto) (0.0-0.7) K/uL Baso # (Auto) (0.0-0.1) K/uL Nucleated RBC % /100WBC Nucleated RBCs # K/uL Lactate 2.2 H (0.20-2.00) mmol/L Sodium (136-146) mmol/L Potassium (3.5-5.1) mmol/L Chloride (98-110) mmol/L Carbon Dioxide (21-31) mmol/L BUN (6.0-23.0) mg/dL Creatinine (0.6-1.5) mg/dL Est Cr Clr Drug Dosing mL/min Estimated GFR (MDRD) ml/min Glucose (60-110) mg/dL Calcium (8.8-10.8) mg/dL Urine Color Urine Appearance Urine pH (5.0-8.0) Ur Specific [place] (1.001-1.035) Urine Protein (NEGATIVE) mg/dL Urine Glucose (UA) (NEGATIVE) mg/dL Urine Ketones (NEGATIVE) mg/dL Urine Occult Blood (NEGATIVE) Urine Nitrite (NEGATIVE) Urine Bilirubin (NEGATIVE) Urine Urobilinogen (<2.0) EU/dL Ur Leukocyte Esterase (NEGATIVE) Urine RBC (0-2/HPF) Urine WBC (0-5/HPF) Ur Epithelial Cells (NONE-FEW) Urine Bacteria (NEGATIVE) Hyaline Casts (0-2/LPF) Urine Mucus (NONE-MOD) SNATY Results - Last 24 hrs: Microbiology 11/20/16 01:10 Gram Stain - Preliminary Sputum - Expectorated Med Orders - Current: Current Medications Benzonatate (Tessalon Perles) 100 mg PO Q6H PRN PRN Reason: Cough Last Admin: 11/20/16 01:10 Dose: 100 mg Enoxaparin Sodium (Lovenox) 40 mg SUBCUT Q24H [facility] Last Admin: 11/19/16 17:44 Dose: 40 mg Sodium Chloride (Normal Saline) 1,000 mls @ 250 mls/hr IV ASDIRECTED ARNAUD Last Infusion: 11/20/16 09:05 Dose: 250 mls/hr Morphine Sulfate (Morphine) 2 mg IVPUSH Q4H PRN PRN Reason: Pain (severe 7-10) Nicotine (Habitrol) 7 mg TRDERM DAILY [facility] Last Admin: 11/20/16 09:20 Dose: Not Given Oxycodone HCl (Oxycodone) 5 mg PO Q4H PRN PRN Reason: Pain (moderate 4-6) Last Admin: 11/19/16 23:49 Dose: 5 mg Sodium Chloride (Saline Flush) 10 ml FLUSH ASDIRECTED PRN PRN Reason: Keep Vein Open Last Admin: 11/19/16 12:48 Dose: 10 ml Sodium Chloride (Saline Flush) 2.5 ml FLUSH ASDIRECTED PRN PRN Reason: Keep Vein Open Last Admin: 11/19/16 12:48 Dose: 2.5 ml Discontinued Medications Aspirin (Aspirin) 324 mg PO ONETIME ONE Stop: 11/19/16 12:34 Last Admin: 11/19/16 12:47 Dose: 324 mg Aspirin (Aspirin) 324 mg PO ONETIME ONE Stop: 11/19/16 12:34 Last Admin: 11/19/16 12:49 Dose: Not Given Al Hydroxide/Mg Hydroxide 15 ml/ Metoclopramide HCl 5 mg/Lidocaine HCl 5 ml 0 ml PO ONETIME ONE Stop: 11/19/16 12:34 Last Admin: 11/19/16 12:47 Dose: 25 each Famotidine (Pepcid) 20 mg IVPUSH ONETIME ONE Stop: 11/19/16 12:34 Last Admin: 11/19/16 12:48 Dose: 20 mg Ceftriaxone Sodium/Dextrose 1 (gm/ Premix) 50 mls @ 100 mls/hr IV ONETIME ONE Stop: 11/19/16 13:58 Last Admin: 11/19/16 13:43 Dose: 100 mls/hr Ketorolac Tromethamine (Toradol) 30 mg IVPUSH ONETIME ONE Stop: 11/19/16 12:34 Last Admin: 11/19/16 12:48 Dose: 30 mg *Q Meaningful Use (DIS) - VTE *Q VTE Criteria *Q: - Stroke *Q Stroke Criteria *Q: - AMI *Q AMI Criteria *Q:
[2016-11-20 09:15] VITALS: BP 101/80
--- NOTE | 2016-11-20 14:09 | CR ---
EXAM DATE: 11/19/16 PATIENT'S AGE: 61 Patient: WESTON RAND Facility: [place], [place] Site Site : 1955 Study: XRay Chest [id number]/29/2017 12:45:57 PM Ordering Physician: GELACIO HAN MD Final Report: HISTORY: Chest pain. Technique: One view portable chest. Comparison: None. Findings: Hazy airspace opacity in the mid left lung greatest peripherally. No focal airspace consolidation on the right. No pleural effusion or pneumothorax. Pulmonary vasculature is within normal limits. Cardiac size was enlarged. Impression: 1. Hazy mid left lung consolidation may be pneumonia, less likely asymmetric edema. 2. Enlarged cardiac silhouette. Dictated by Chau Chen MD @ Nov 19 2016 1:05PM (Electronic Signature) Report Signed by Proxy. MORGAN ST[facility] CHILDREN'S HOSPITALRyan
--- NOTE | 2016-11-21 12:50 | CONS ---
DATE OF CONSULTATION: DATE OF : 1955 PRIMARY CARE PHYSICIAN: None PCP REASON FOR CONSULTATION: Pericardial effusion. HISTORY OF PRESENT ILLNESS: This is a 61-year-old male, who has not been seen by the doctor for quite a while without prior cardiac history presented to the hospital because of feeling shortness of breath over the past week. He stated that over the past 1-2 weeks, he started having nonproductive cough with runny nose and shortness of breath, and it had got worse to the point that when he walked to the door, he started feeling short of breath and he also complained about the sharp chest pain. It was located at the sternal area, no radiation, on and off, it is occasional chest pain, not related to position or related to respiration. The chest pain started today and yesterday. He is not sure that he was having a fever. He stated that he coughs a lot, and he has some muscle strain in his abdomen. No abdominal pain. No diarrhea. No nausea, no vomiting. No palpitation as well. PAST MEDICAL HISTORY: No diabetes, no hypertension, no hyperlipidemia. ALLERGIES: No known drug allergies. SOCIAL HISTORY: He was a former smoker, alcoholic drinking, no drug use. He lives in [place]. 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 PHYSICAL EXAMINATION: VITAL SIGNS: Blood pressure initially was 144/101, it was coming down to 92/67 with a heart rate initially of 105 and temperature 36.6, O2 saturation is 93% on room air, respiration rate 18 to 20. HEENT: Not pale. No jaundice. Mouth, dry. HEART: Distant heart sound. Normal S1, S2. I could not appreciate a murmur. LUNGS: Clear bilaterally. No JVD. ABDOMEN: Soft, nontender. Bowel sounds present. No hepatosplenomegaly. EXTREMITIES: No edema. LABORATORY INVESTIGATION: CBC showed WBC 9, hematocrit 32, hemoglobin 10, and platelet 275. Sodium 129, potassium 5, chloride 99, bicarb 18, BUN 26, creatinine 0.8, glucose 116, calcium 7.7. BNP 99. Troponin less than 0.1. Bedside echocardiogram showed large circumferential pericardial effusion with diastolic RV collapse. ASSESSMENT AND PLAN: This is a 61-year-old male who has not had any prior cardiac history presented to the hospital with shortness of breath, become hypotensive as well as symptomatic with a low pericardial effusion on echocardiogram with collapse of RV during diastole consistent with a tamponade physiology. He would need the emergency transfer for emergent pericardiocentesis and the pericardial fluid needs to be looked for the etiology. The differential diagnosis for pericardial effusion could be why differential diagnosis is including heart failure, malignancy, and also inflammatory disease or just a viral infection. It would be difficult to know the etiology without doing the cytology of a pericardial effusion. We will arrange an emergent transfer by flight and he will be transferred to tertiary care for pericardial tapping. He may need pericardial window as well. He will be seen by cuff stitcher over there. MARIO / KIRAN /[id number]
--- NOTE | 2016-11-22 11:43 | ECHO ---
EXAM DATE: 11/19/16 PATIENT'S AGE: 61 The echocardiogram report can be seen in this patient's EMR (Electronic Medical Record) in the Reports section. DIANDRA
== END 2016-11-20 09:41 | DRG 720 ==
LOC: MW.ED 12:23 → MW.MS 13:37
PROVIDERS: ADMIT Internal Medicine; ATTEND Internal Medicine
DX: A41.9 Sepsis, unspecified organism (principal); J18.1 Lobar pneumonia, unspecified organism; I31.4 Cardiac tamponade; E87.2 Acidosis; D72.829 Elevated white blood cell count, unspecified; R07.89 Other chest pain; F17.200 Nicotine dependence, unspecified, uncomplicated
CPT/HCPCS: 36415; 71010; 71010-26; 80048; 80053; 81001; 82150; 83605; 83690; 83880; 84484; 85025; 87040; 87070; 87205; 93005; 93306; 96374; 96375; 99285; 99285-25; A9270-GY; J0696; J1650; J1885; J7040